=== PATIENT | male | born 1985 | race Caucasian/White ===

== ENCOUNTER 2017-06-03 10:47 | Day surgery (SDC) | payer OTHER ==
[2017-06-01 11:51] LABS: BASOPHILS % (AUTO) 0.5 % (0.0-2.0); EOSINOPHILS # (AUTO) 0.1 K/uL (0.0-0.4); EOSINOPHILS % (AUTO) 0.7 % (0.0-4.0); HEMATOCRIT 48.9 % (36-54); HEMOGLOBIN 15.9 g/dL (14.0-18.0); LYMPHOCYTES % (AUTO) 26.6 % (20.5-51.5); MEAN CORPUSCULAR HEMOGLOBIN 28 pg (27-31); MEAN CORPUSCULAR HGB CONC 33 % (32-36); MEAN CORPUSCULAR VOLUME 86 fL (79.0-98.0); MONOCYTES # (AUTO) 0.6 K/uL (0.0-1.0); MONOCYTES % (AUTO) 8.1 % (1.7-9.3); NEUTROPHILS % (AUTO) 64.1 % (40.0-70.0); PLATELET COUNT (AUTO) 267 K/uL (130-430); RED BLOOD CELL COUNT(AUTO) 5.67 MIL/uL (4.2-6.2); RED CELL DISTRIBUTION WIDTH 12.4 % (9.0-15.0); WHITE BLOOD COUNT (AUTO) 7.7 K/uL (4.8-10.8)
[2017-06-01 11:53] LABS: BILIRUBIN,URINE NEGATIVE (NEGATIVE); BLOOD, URINE NEGATIVE (NEGATIVE); CLARITY/URINE CLEAR (CLEAR); COLOR,URINE YELLOW (YELLOW); GLUCOSE,URINE NEGATIVE (NEGATIVE); KETONES,URINE NEGATIVE (NEGATIVE); LEUKOCYTE ESTERASE ,URINE NEGATIVE (NEGATIVE); NITRITE, URINE NEGATIVE (NEGATIVE); PH,URINE 6.5 (5.0-8.0); PROTEIN URINE NEGATIVE (NEGATIVE)
[~2017-06-03] VITALS: Ht 188 cm; Wt 124.7 kg
[2017-06-03] MEDS ORDERED: SEVOFLURANE 15 MIN GAS INH ONE (12:38)
[2017-06-03] MEDS ORDERED: CEFAZOLIN 2 GM IVPB PREMIX 50 ML IV ONE (12:38)
[2017-06-03] MEDS ORDERED: PROPOFOL 200MG/ 20ML VIAL (DIPRIVAN) IV ONE (12:38)
[2017-06-03] MEDS ORDERED: KETOROLAC TROMETHAMINE 30 MG VIAL IVP ONE (12:38)
[2017-06-03] MEDS ORDERED: fentaNYL CITRATE/PF 100 MCG/2 ML AMP IVP ONE (12:38)
[2017-06-03] MEDS ORDERED: METOPROLOL TARTRATE 5 MG/5 ML VIAL IVP ONE (12:38)
[2017-06-03] MEDS ORDERED: MIDAZOLAM HCL 5 MG/5 ML VIAL IVP ONE (12:38)
[2017-06-03] MEDS ORDERED: LR 1,000 ML IV SCH (13:17)
[2017-06-03] MEDS ORDERED: KETOROLAC TROMETHAMINE 30 MG VIAL IVP PRN (13:30)
[2017-06-03] MEDS ORDERED: ONDANSETRON HCL 4 MG/2 ML VIAL IVP PRN (13:30)
[2017-06-03] MEDS ORDERED: HYDROmorphone 1 MG INJ. 1 MG/ML AMPUL IVP PRN (13:30)
[2017-06-03] MEDS ORDERED: HYDROmorphone 2 MG/ML VIAL IVP PRN ×2 (13:30)
[2017-06-03] MEDS ORDERED: MEPERIDINE HCL/PF 25 MG/ML DISP.SYRIN IVP PRN ×2 (13:30)
[2017-06-03 14:43] VITALS: BP_SYST 138
[2017-06-03] MEDS ORDERED: HYDROcodone/ACETAMIN 7.5-325 MG TAB ONE (14:45)
== END 2017-06-03 15:20 | disposition home or self-care (01) ==
LOC: SDS 10:47 → SMU 10:48 → SDS 15:20
PROVIDERS: ATTEND Orthopaedic Surgery
DX: M22.02 Recurrent dislocation of patella, left knee (principal); M22.42 Chondromalacia patellae, left knee; Z98.890 Other specified postprocedural states; I10 Essential (primary) hypertension; Z68.39 Body mass index [BMI] 39.0-39.9, adult
CPT/HCPCS: 29873; 36415; 81003; 85025; J0690; J1885; J2250; J2704; J3010; J3490; J7120